=== PATIENT | male | born 1995 | race African-American/Black ===

== ENCOUNTER 2017-01-20 19:00 | Emergency (ER) | payer OTHER ==
[~2017-01-20] VITALS: Ht 190.5 cm; Wt 122.5 kg
[2017-01-20] MEDS ORDERED: NKM (19:20)
[2017-01-20 19:33] VITALS: BP 126/74
--- NOTE | 2017-01-20 19:33 | Emergency Room Report ---
History of Present Illness General Chief Complaint: Abdominal Pain Source: Patient Present Illness HPI Is a 21-year-old with no past medical history. He presents with chief complaint abdominal pain and back pain. Has been on off for the last month. Vomiting today. Pain is mostly right flank epigastric area. Radiating to the back. No diarrhea. In as 01/07. No fever or chills. Allergies: Coded Allergies: IBUPROFEN (Verified Allergy, Unknown, 01/20/17) Patient History Past Medical History: none, see triage record, old chart reviewed Past Surgical History: none Pertinent Family History: none Social History: Denies: smoking Immunizations: UTD Reviewed Nursing Documentation: PMH: Agreed, PSxH: Agreed Nursing Documentation-PMH Past Medical History: No Stated History Review of Systems Eye: Denies: blurred vision, eye pain ENT: Denies: ear pain, nose congestion, throat swelling Respiratory: Denies: cough, shortness of breath Cardiovascular: Denies: chest pain, palpitations Gastrointestinal: Reports: abdominal pain, nausea, vomiting, Denies: diarrhea Musculoskeletal: Denies: back pain, joint pain Skin: Denies: rash Neurological: Denies: headache, numbness Endocrine: Denies: increased thirst, increased urine Hematologic/Lymphatic: Denies: easy bruising All Other Systems: negative except mentioned in HPI Physical Exam Vital Signs Date Time Temp Pulse Resp B/P Pulse Ox O2 Delivery O2 Flow Rate FiO2 01/20/17 19:15 97.9 74 18 126/74 96 Room Air vitals normal Sp02 EP Interpretation: reviewed, normal General Appearance: well appearing, no apparent distress, alert, obese Head: normocephalic, atraumatic Eyes: bilateral eye EOMI, bilateral eye PERRL ENT: hearing grossly normal, normal pharynx Neck: full range of motion, supple, no meningismus Respiratory: chest non-tender, lungs clear, normal breath sounds Cardiovascular #1: regular rate, rhythm, no murmur Gastrointestinal: normal bowel sounds, non tender, no mass, no organomegaly, no bruit, non-distended Musculoskeletal: back normal, gait/station normal, normal range of motion Psychiatric: mood/affect normal Skin: warm/dry Medical Decision Making Diagnostic Impression: Primary Impression: Abdominal pain of unknown etiology Additional Impression: Umbilical hernia Qualified Codes: K42.9 - Umbilical hernia without obstruction or gangrene ER Course Patient with abdominal pain. He looks very comfortable. No evidence of obstruction. We'll discharge home. Lab Results Impression labs normal CT/MRI/US Diagnostic Results CT/MRI/US Diagnostic Results : Imaging Test Ordered: CT abdomen and pelvis Impression read by radiologist. Small umbilical hernia. Nonobstructive. Last Vital Signs Date Time Temp Pulse Resp B/P Pulse Ox O2 Delivery O2 Flow Rate FiO2 01/20/17 19:15 97.9 74 18 126/74 96 Room Air Status: improved Disposition: HOME, SELF-CARE Condition: Stable Scripts Acetaminophen* (ACETAMINOPHEN EXTRA STRENGTH*) 500 Mg Tablet 500 MG ORAL Q8H Y for Fever/Headache/Mild Pain, #30 TAB Prov: SANDEEP SANDERS M.D. 01/20/17 Patient Instructions: Abdominal Pain, Adult Additional Instructions: followup with your DrJaime in 7 days. Return it worse. SANDEEP SANDERS M.D. Jan 20, 2017 19:33
[2017-01-20 19:51] LABS: BASOPHILS % (AUTO) 1.5 % (0.0-2.0); EOSINOPHILS % (AUTO) 0.5 % (0.0-3.0); LYMPHOCYTES % (AUTO) 31.3 % (20.0-45.0); MEAN CORPUSCULAR HEMOGLOBIN 30.4 PG (27.0-31.0); MEAN CORPUSCULAR VOLUME 89 FL (80-99); MEAN PLATELET VOLUME 9.1 FL (6.5-10.1); MONOCYTES % (AUTO) 8.9 % (1.0-10.0); NEUTROPHILS % (AUTO) 57.9 % (45.0-75.0); PLATELET COUNT 227 K/UL (150-450); RED BLOOD COUNT 5.31 M/UL (4.70-6.10); RED CELL DISTRIBUTION WIDTH 11.6 % (11.6-14.8); WHITE BLOOD COUNT 7.6 K/UL (4.8-10.8)
[2017-01-20 19:54] LABS: APPEARANCE,URINE SLIGHTLY CLOUDY; KETONES,URINE NEGATIVE (NEGATIVE); LEUKOCYTE ESTERASE ,URINE 1+ (NEGATIVE); NITRITE,URINE NEGATIVE (NEGATIVE); PH,URINE 7 (4.5-8.0); PROTEIN,URINE 1+ (NEGATIVE); UROBILINOGEN,URINE 1 MG/DL (0.0-1.0)
[2017-01-20 20:03] LABS: BACTERIA,URINE FEW /HPF; RBC,URINE 0-2 /HPF (0 - 0); SQUAMOUS EPITHELIAL CELL,UR OCCASIONAL /LPF (NONE/OCC)
[2017-01-20 20:04] LABS: ICTOTEST NEGATIVE; MUCUS,URINE MODERATE /LPF (NONE/OCC)
[2017-01-20 20:06] LABS: ALANINE AMINOTRANSFERASE 24 U/L (3-41); ALBUMIN/GLOBULIN RATIO 1.7 (1.0-2.7); ANION GAP 11 (5-15); ASPARTATE AMINO TRANSFERASE 21 U/L (5-40); CALCIUM 9.4 mg/dL (8.6-10.2); CARBON DIOXIDE 28 mEQ/L (20-30); CHLORIDE 102 mEQ/L (98-107); CREATININE 1.2 mg/dL (0.7-1.2); GLOMERULAR FILTRATION RATE > 60 mL/min (>60); HEMOLYSIS 6; LIPASE 35 U/L (< 60); SODIUM 141 mEQ/L (135-145); TOTAL PROTEIN 7.4 g/dL (6.6-8.7)
[2017-01-20] MEDS ORDERED: ACETAMINOPHEN500 M3 ORAL (20:53)
[2017-01-20 21:02] VITALS: BP 122/70
[2017-01-20 21:03] VITALS: BP 126/74
--- NOTE | 2017-01-21 12:15 | Diagnostic Imaging Report ---
Indication: ABD PAIN abdominal pain bilateral flank pain for one month. On the 3 times a day Technique: Spiral acquisitions obtained through the abdomen and pelvis. No oral or IV contrast utilized, per urinary stone protocol. Multiplanar reconstructions were generated. Total dose length product 1168 mGycm. CTDIvol(s) 19 mGy. Dose reduction achieved using automated exposure control Comparison: None Findings: No renal or ureteral calculi, hydronephrosis, or hydroureter demonstrated. Lack of IV contrast limits assessment of the renal parenchyma. No gross renal parenchymal mass or cyst demonstrated. Lack of IV contrast limits assessment of the other solid organs. The liver is unremarkable. The gallbladder is completely nondistended. No biliary ductal dilatation. The pancreas is unremarkable. The spleen is enlarged, measuring 15 cm long axis dimension. Unremarkable adrenals. No retroperitoneal or mesenteric mass or adenopathy. No pelvic mass or adenopathy. The appendix is normal. No evidence of diverticulosis or diverticulitis. No small bowel distention. No free or loculated intraperitoneal air or fluid. The included lung bases are clear. The bones are unremarkable. Impression: No evidence of urinary stone disease, or obstructive uropathy No other acute pathology demonstrated Small fat-containing umbilical hernia incidentally noted. The above findings are in agreement with the preliminary interpretation provided overnight by [facility] teleradiology service Splenomegaly. This was not reported on the preliminary report. This finding was reported to Dr. Zuniga at the time of interpretation. The CT scanner at [facility] is accredited by the [employer] and the scans are performed using protocols designed to limit radiation exposure to as low as reasonably achievable to attain images of sufficient resolution adequate for diagnostic evaluation.
== END 2017-01-20 21:03 | disposition home or self-care (01) ==
LOC: EMR 19:51
DX: R10.9 Unspecified abdominal pain (principal); K42.9 Umbilical hernia without obstruction or gangrene; Z88.6 Allergy status to analgesic agent
CPT/HCPCS: 36415; 74176; 80053; 81003; 83690; 85025; 96360; 96374; 99284; J2405; J7040

== ENCOUNTER 2017-01-22 18:16 | Emergency (ER) | payer OTHER ==
[~2017-01-22] VITALS: Ht 190.5 cm; Wt 122.5 kg
[~2017-01-22 18:16] MED LIST: ACETAMINOPHEN500 M3 ORAL; NKM
[2017-01-22 18:30] VITALS: BP 103/59
[2017-01-22] MEDS ORDERED: Metoclopramide 10mg/2ml Inj IVP ONE (18:45)
[2017-01-22 18:56] LABS: APPEARANCE,URINE CLEAR; KETONES,URINE NEGATIVE (NEGATIVE); LEUKOCYTE ESTERASE ,URINE NEGATIVE (NEGATIVE); NITRITE,URINE NEGATIVE (NEGATIVE); PH,URINE 6.5 (4.5-8.0); PROTEIN,URINE NEGATIVE (NEGATIVE); UROBILINOGEN,URINE NORMAL MG/DL (0.0-1.0)
[2017-01-22 19:00] LABS: BASOPHILS % (AUTO) 1.4 % (0.0-2.0); EOSINOPHILS % (AUTO) 0.3 % (0.0-3.0); LYMPHOCYTES % (AUTO) 28.8 % (20.0-45.0); MEAN CORPUSCULAR HEMOGLOBIN 32.1 PG (27.0-31.0); MEAN CORPUSCULAR HGB CONC 35.9 G/DL (32.0-36.0); MEAN CORPUSCULAR VOLUME 89 FL (80-99); MEAN PLATELET VOLUME 8.7 FL (6.5-10.1); MONOCYTES % (AUTO) 8.4 % (1.0-10.0); NEUTROPHILS % (AUTO) 61.2 % (45.0-75.0); PLATELET COUNT 190 K/UL (150-450); RED BLOOD COUNT 4.91 M/UL (4.70-6.10); RED CELL DISTRIBUTION WIDTH 11.2 % (11.6-14.8); WHITE BLOOD COUNT 5.7 K/UL (4.8-10.8)
[2017-01-22 19:11] LABS: ALANINE AMINOTRANSFERASE 21 U/L (3-41); ALBUMIN/GLOBULIN RATIO 1.6 (1.0-2.7); ANION GAP 10 (5-15); ASPARTATE AMINO TRANSFERASE 18 U/L (5-40); CALCIUM 9.7 mg/dL (8.6-10.2); CARBON DIOXIDE 26 mEQ/L (20-30); CHLORIDE 104 mEQ/L (98-107); CREATININE 0.9 mg/dL (0.7-1.2); GLOMERULAR FILTRATION RATE > 60 mL/min (>60); HEMOLYSIS 10; LIPASE 55 U/L (< 60); SODIUM 140 mEQ/L (135-145); TOTAL PROTEIN 7.5 g/dL (6.6-8.7)
[2017-01-22] MEDS ORDERED: TYLENOL EXTRA500 MG ORAL (19:26)
[2017-01-22 19:32] LABS: BILIRUBIN,DIRECT 0.2 mg/dL (0.1-0.3)
--- NOTE | 2017-01-22 19:35 | Emergency Room Report ---
History of Present Illness General Chief Complaint: Abdominal Pain Source: Patient Present Illness HPI Patient is a 21-year-old male presenting for abdominal pain. The patient was seen in this emergency department 2 days prior for the same complaint. She was diagnosed with an umbilical hernia via CT scan. He states that he has always had pain around the bellybutton but was never diagnosed with a hernia. He states pain has increased recently due to increased activity at work. Pain is now 9/10 dull ache and does not radiate from the area. Worse with movement and touch. He denies any other symptoms including N, V, F, chills, back pain, diarrhea, constipation, dysuria, hematuria Allergies: Coded Allergies: IBUPROFEN (Verified Allergy, Unknown, 01/20/17) Patient History Past Medical History: see triage record Pertinent Family History: none Reviewed Nursing Documentation: PMH: Agreed, PSxH: Agreed Nursing Documentation-PMH Hx Cardiac Problems: No - UMBILICAL HERNIA Review of Systems All Other Systems: negative except mentioned in HPI Physical Exam Vital Signs Date Time Temp Pulse Resp B/P Pulse Ox O2 Delivery O2 Flow Rate FiO2 01/22/17 18:23 97.5 81 16 117/42 97 Room Air Sp02 EP Interpretation: reviewed, normal General Appearance: no apparent distress, alert, GCS 15, non-toxic Head: normocephalic, atraumatic Eyes: bilateral eye PERRL, bilateral eye normal inspection Respiratory: chest non-tender, lungs clear, normal breath sounds, speaking full sentences Cardiovascular #1: regular rate, rhythm, no edema Gastrointestinal: normal bowel sounds, soft, no mass, no guarding, tenderness - TTP over the umbilicus , overweight Rectal: deferred Genitourinary: normal inspection, no CVA tenderness Musculoskeletal: back normal, gait/station normal, normal range of motion, non- tender Neurologic: alert, oriented x3, responsive, motor strength/tone normal, sensory intact, speech normal Psychiatric: judgement/insight normal, memory normal, mood/affect normal, no suicidal/homicidal ideation Skin: normal color, no rash, warm/dry, well hydrated Medical Decision Making PA Attestation Dr. Luther is my supervising physician. Patient management was discussed with my supervising physician Diagnostic Impression: Primary Impression: Umbilical hernia Qualified Codes: K42.9 - Umbilical hernia without obstruction or gangrene ER Course The patient is a 21 yo M with a hx of umbilical hernia presenting for abdominal pain. DDx considered but not limited to: umbilical hernia, incarcerated hernia, appendicitis, gastroenteritis, among others PE: afebrile. NAD Abdomen is soft. There is tenderness to palpation over the umbilicus only. No hernia is palpated. Normal BS. No guarding. No CVA tenderness. Skin warm and dry No imaging needed at this time as he had CT 2 days prior. Lab work unremarkable. Patient to be discharged home with a prescription for Tylenol. ER precautions are given Laboratory Tests Test 01/22/17 18:45 White Blood Count 5.7 K/UL (4.8-10.8) Red Blood Count 4.91 M/UL (4.70-6.10) Hemoglobin 15.7 G/DL (14.2-18.0) Hematocrit 43.9 % (42.0-52.0) Mean Corpuscular Volume 89 FL (80-99) Mean Corpuscular Hemoglobin 32.1 PG (27.0-31.0) H Mean Corpuscular Hemoglobin Concent 35.9 G/DL (32.0-36.0) Red Cell Distribution Width 11.2 % (11.6-14.8) L Platelet Count 190 K/UL (150-450) Mean Platelet Volume 8.7 FL (6.5-10.1) Neutrophils (%) (Auto) 61.2 % (45.0-75.0) Lymphocytes (%) (Auto) 28.8 % (20.0-45.0) Monocytes (%) (Auto) 8.4 % (1.0-10.0) Eosinophils (%) (Auto) 0.3 % (0.0-3.0) Basophils (%) (Auto) 1.4 % (0.0-2.0) Urine Color Pale yellow Urine Appearance Clear Urine pH 6.5 (4.5-8.0) Urine Specific [place] 1.010 (1.005-1.035) Urine Protein Negative (NEGATIVE) Urine Glucose (UA) Negative (NEGATIVE) Urine Ketones Negative (NEGATIVE) Urine Occult Blood Negative (NEGATIVE) Urine Nitrite Negative (NEGATIVE) Urine Bilirubin Negative (NEGATIVE) Urine Urobilinogen Normal MG/DL (0.0-1.0) Urine Leukocyte Esterase Negative (NEGATIVE) Sodium Level 140 mEQ/L (135-145) Potassium Level 4.0 mEQ/L (3.4-4.9) Chloride Level 104 mEQ/L (98-107) Carbon Dioxide Level 26 mEQ/L (20-30) Anion Gap 10 (5-15) Blood Urea Nitrogen 11 mg/dL (7-23) Creatinine 0.9 mg/dL (0.7-1.2) Estimate Glomerular Filtration Rate > 60 mL/min (>60) Glucose Level 123 mg/dL (74-106) H Calcium Level 9.7 mg/dL (8.6-10.2) Total Bilirubin 1.2 mg/dL (0.0-1.2) Direct Bilirubin Pending Aspartate Amino Transferase (AST) 18 U/L (5-40) Alanine Aminotransferase (ALT) 21 U/L (3-41) Alkaline Phosphatase 48 U/L (40-129) Total Protein 7.5 g/dL (6.6-8.7) Albumin 4.7 g/dL (3.5-5.2) Globulin 2.8 g/dL Albumin/Globulin Ratio 1.6 (1.0-2.7) Lipase 55 U/L (< 60) Lab Results Impression unremarkable Last Vital Signs Date Time Temp Pulse Resp B/P Pulse Ox O2 Delivery O2 Flow Rate FiO2 01/22/17 18:30 98.1 64 18 103/59 97 Room Air Status: improved Disposition: HOME, SELF-CARE Condition: Improved Scripts Acetaminophen* (TYLENOL EXTRA STRENGTH*) 500 Mg Tablet 500 MG ORAL Q8H Y for Prn Headache/Temp > 101, #30 TAB 0 Refills Prov: APRIL ROJAS 01/22/17 Patient Instructions: Umbilical Hernia, Pediatric Additional Instructions: I discussed my findings with the patient. All questions and concerns have been answered. Treatment and medication compliance have been addressed. I advised the patient that they need to follow up with PMD in 3-5 days. Return to ED if symptoms worsen, new symptoms arise, or if needed for any reason. Patient verbalized understanding of discharge instructions. APRIL ROJAS Jan 22, 2017 19:35
[2017-01-22 19:50] VITALS: BP 105/62
== END 2017-01-22 19:50 | disposition home or self-care (01) ==
LOC: EMR 18:36
DX: K42.9 Umbilical hernia without obstruction or gangrene (principal); Z88.6 Allergy status to analgesic agent; E66.3 Overweight
CPT/HCPCS: 36415; 80053; 81003; 82248; 83690; 85025; 96360; 96374; 99284; J2765

== ENCOUNTER 2019-02-08 15:43 | Emergency (ER) | payer OTHER ==
[~2019-02-08] VITALS: Ht 182.9 cm; Wt 113.4 kg
[~2019-02-08 15:43] MED LIST changes: +TYLENOL EXTRA500 MG ORAL
[2019-02-08 15:52] VITALS: BP 120/70
--- NOTE | 2019-02-08 15:52 | NUR ---
ED Nurse Note: Patient walked into ED c/o chest accompanied by abdominal pain for the past 2 days, states that pain is worsened after eating and laying down, patient complains of bilateral pain for months however has a history of hernia. patient is alert and oriented x4, ambulatory with a steady gait, VSS. patient rates his pain 8/10 pain
[2019-02-08] MEDS ORDERED: Lidocaine 2% Visc 15ml soln ORAL ONE (16:15)
[2019-02-08] MEDS ORDERED: Albuterol ud Inhalation HHN ONE (16:30)
[2019-02-08 16:42] LABS: APPEARANCE,URINE CLEAR; BILIRUBIN, URINE NEGATIVE (NEGATIVE); GLUCOSE, URINE (UA) NEGATIVE (NEGATIVE); KETONES,URINE 1+ (NEGATIVE); LEUKOCYTE ESTERASE ,URINE 1+ (NEGATIVE); NITRITE,URINE NEGATIVE (NEGATIVE); PH,URINE 5 (4.5-8.0); PROTEIN,URINE 1+ (NEGATIVE); UROBILINOGEN,URINE NORMAL MG/DL (0.0-1.0)
[2019-02-08 16:49] LABS: COLOR,URINE YELLOW
--- NOTE | 2019-02-08 16:53 | Emergency Room Report ---
History of Present Illness General Chief Complaint: Abdominal Pain Present Illness HPI 23 YO male 8/10 in severity mid-epigastric abdominal and chest pain x 2 days. pain worsened after eating spicy food or lying down. pt. reports feeling "chest tightness" and being short of breath. He denies significant PmHx or familial cardiac hx. denies hx of ulcers/ GERD. He reports history of umbilical hernia states that it is not currently causing him problems. He denies hemoptysis nausea, vomiting, constipation or diarrhea. He denies blood in the stool or black tarry stools. reports flank/low back pain off and on x months worse with long hours of standing at work. Denies palpitations, Dizziness, paresthesias or recent head injury. Denies increased stress or anxiety. Denies trauma or fall. Denies hematuria, dysuria, fevers or chills. Denies penile d/c. Denies drug or ETOH use. Allergies: Coded Allergies: IBUPROFEN (Verified Allergy, Unknown, 01/20/17) Patient History Past Medical History: see triage record Past Surgical History: none Pertinent Family History: none Immunizations: UTD Reviewed Nursing Documentation: PMH: Agreed; PSxH: Agreed Nursing Documentation-PMH Hx Cardiac Problems: No - UMBILICAL HERNIA Review of Systems All Other Systems: negative except mentioned in HPI Physical Exam Vital Signs Date Time Temp Pulse Resp B/P (MAP) Pulse Ox O2 Delivery O2 Flow Rate FiO2 02/08/19 15:50 98.1 78 16 112/65 (81) 95 Sp02 EP Interpretation: reviewed, normal General Appearance: no apparent distress, alert, GCS 15, non-toxic Head: normocephalic, atraumatic Eyes: bilateral eye normal inspection, bilateral eye PERRL ENT: hearing grossly normal, normal voice Neck: full range of motion Respiratory: chest non-tender, lungs clear, normal breath sounds, no rhonchi, no respiratory distress, no accessory muscle use, no wheezing, speaking full sentences Cardiovascular #1: regular rate, rhythm, no edema, normal capillary refill Gastrointestinal: normal bowel sounds, non tender, soft, non-distended, no guarding Genitourinary: normal inspection, CVA tenderness (R), CVA tenderness (L) Musculoskeletal: back normal, gait/station normal, normal range of motion, tender - TTP to bilateral lumbar paraspinal musculature and flank musculature bilaterally. FROM, no obvious deformities. Neurologic: alert, oriented x3, responsive, motor strength/tone normal, sensory intact, speech normal, grossly normal Psychiatric: judgement/insight normal Medical Decision Making PA Attestation Dr. Tucker is my supervising Physician whom patient management has been discussed with. Diagnostic Impression: Primary Impression: Epigastric pain Additional Impression: Muscle strain ER Course 23 YO male 8/10 in severity mid-epigastric abdominal and chest pain x 2 days. pain worsened after eating spicy food or lying down. pt. reports feeling "chest tightness" and being short of breath. He denies significant PmHx or familial cardiac hx. denies hx of ulcers/ GERD. He reports history of umbilical hernia states that it is not currently causing him problems. He denies hemoptysis nausea, vomiting, constipation or diarrhea. He denies blood in the stool or black tarry stools. reports flank/low back pain off and on x months worse with long hours of standing at work. Denies palpitations, Dizziness, paresthesias or recent head injury. Denies increased stress or anxiety. Denies trauma or fall. Denies hematuria, dysuria, fevers or chills. Denies penile d/c. Denies drug or ETOH use. Ddx considered but are not limited to [place], pneumonia, contusion, costochondritis , PE, ACS, Shoulder strain, Chest wall contusion. aortic dissection, Anxiety reaction, Asthma, GERD, PUD, UTI, renal stones, pyelonephritis, MSK injury just to name a few Vital signs: are WNL, pt. is afebrile H&PE are most consistent with Possible GERD sx'd vs gastritis. will R/O UTI and do ekg. no cardiac RF's -Pt. NAD, non-toxic in appearance. ORDERS: - EK BPM sinus vikas - UA: Unremarkable ED INTERVENTIONS: - Pepcid PO -Viscous Lidocaine PO - Albuterol HHN -I do not identify an emergent condition at this time. With current presentation , pt. is stable for close outpatient follow up and conservative treatment. D/ w pt. to return promptly to ED with worsening or new symptoms.- Pt. verbalizes' understanding and agreement with proposed treatment plan.proposed treatment plan. DISCHARGE: At this time pt. is stable for d/c to home. Will provide printed patient care instructions, and any necessary prescriptions. Care plan and follow up instructions have been discussed with the patient prior to discharge. Labs Test 02/08/19 16:15 Urine Color Yellow Urine Appearance Clear Urine pH 5 (4.5-8.0) Urine Specific [place] 1.025 (1.005-1.035) Urine Protein 1+ (NEGATIVE) Urine Glucose (UA) Negative (NEGATIVE) Urine Ketones 1+ (NEGATIVE) Urine Blood Negative (NEGATIVE) Urine Nitrite Negative (NEGATIVE) Urine Bilirubin Negative (NEGATIVE) Urine Urobilinogen Normal MG/DL (0.0-1.0) Urine Leukocyte Esterase 1+ (NEGATIVE) Urine RBC 0-2 /HPF (0 - 0) Urine WBC 2-4 /HPF (0 - 0) Urine Squamous Epithelial Cells None /LPF (NONE/OCC) Urine Bacteria Few /HPF (NONE) EKG Diagnostic Results EP Interpretation: Dr. Tucker Rate: bradycardiac - 54 Rhythm: NSR ST Segments: no acute changes ASA given to the pt in ED: No PA Scribe Text This Interpretation was scribed by PATRICIO Alvarez. Last Vital Signs Date Time Temp Pulse Resp B/P (MAP) Pulse Ox O2 Delivery O2 Flow Rate FiO2 02/08/19 15:50 98.1 78 16 112/65 (81) 95 Disposition: HOME, SELF-CARE Condition: Stable Scripts Ranitidine Hcl* (ZANTAC*) 150 Mg Tablet 150 MG ORAL TWICE A DAY for 14 Days, #28 TAB Prov: Catrina Alvarez 02/08/19 Diclofenac Sodium (VOLTAREN) 100 Gm Gel..gram. 1 APPLIC TP Q6HR, #100 GM Prov: Catrina Alvarez 02/08/19 Lidocaine (Lidoderm) 1 Each Adh..patch 1 PATCH TOPIC DAILY, #30 PATCH 0 Refills Patch(es) may remain in place for up to 12 hours in any 24-hour period. Prov: Catrina Alvarez 02/08/19 Departure Forms: Return to Work Return to Work Date: Feb 10, 2019 Work Restrictions: No Heavy Lifting, No Prolonged Standing Other Restrictions: May return Sooner if Symptoms have resolved. Return to Full Activity: Feb 17, 2019 Patient Instructions: Back Exercises, [id number], Back Pain, Adult, Easy-to- Read, Food Choices for Gastroesophageal Reflux Disease, Adult, [id number] Catrina Alvarez Feb 08, 2019 16:53
[2019-02-08 17:30] VITALS: BP 127/73
--- NOTE | 2019-02-08 17:30 | NUR ---
ER DISCHARGE NOTE: Patient is cleared to be discharged per ERMD, pt is aox4, on room air, with stable vital signs. pt was given dc and prescription instructions, pt was able to verbalize understanding, pt id band removed without complications. pt is able to ambulate with steady gait. pt took all belongings.
[2019-02-08] MEDS ORDERED: LIDODERM700 M1 TOPIC (17:32)
[2019-02-08] MEDS ORDERED: VOLTAREN100 G1 TP (17:32)
[2019-02-08] MEDS ORDERED: ZANTAC150 MG ORAL (17:33)
== END 2019-02-08 17:30 | disposition home or self-care (01) ==
LOC: EMR 16:23
DX: R10.13 Epigastric pain (principal); T14.8XXA Other injury of unspecified body region, initial encounter; X58.XXXA Exposure to other specified factors, initial encounter; Y93.9 Activity, unspecified; Y92.9 Unspecified place or not applicable; R07.9 Chest pain, unspecified; Z88.6 Allergy status to analgesic agent; R00.1 Bradycardia, unspecified
CPT/HCPCS: 81003; 93005; 94640; 94664; 99284